=== PATIENT | female | born 2000 | race Hispanic/Latino ===

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

== ENCOUNTER 2024-08-16 22:08 | Emergency (ER) | payer OTHER, SELFPAY ==
--- NOTE | ~2024-08-16 | CT_ITS ---
CT of the Abdomen and Pelvis: Indication: Abdominal pain Technique: 2.5 mm axial scans were obtained through the abdomen and pelvis following intravenous adm inistration of 100 cc of Omnipaque 350. Dose reduction technique was used on this scan by utilizing a utomated exposure control and iterative reconstruction technique. The dose-length product (DLP) was 1 228.83 mGy-cm. Findings: Scans through the lung bases are unremarkable. The liver, spleen, pancreas, gallbladder, adrenals and kidneys are within normal limits. No evidence of aortic aneurysm. No lymphadenopathy. No bowel obstruction or bowel wall thickening. There is no evidence to suggest acute appendicitis. Images through the pelvis were performed. Urinary bladder unremarkable. No pelvic mass evident. No as cites. Impression: No significant abnormalities seen. Reviewed, dictated and finalized at location . Impression: No significant abnormalities seen.
--- OUTSIDE RECORDS SUMMARY | 2024-08-16 22:10 | XMS_ITS | Clinical Summary ---
Author Organization [facility] Address [address] [place] [address] Care Team Providers Care Coin Machine Service Repairer Name Role Phone Uriel Dinero MD Primary Care Provider [phone] Allergies No known active allergies Medications prenat.vits,home ,[id number] tablet Take 1 tablet by mouth daily Active acetaminophen (TYLENOL) 325 mg tablet Take 2 tablets (650 mg total) by mouth every 6 (six) hours as needed for pain 90 tablet 03/10/2023 Active polyethylene glycol (MIRALAX) 17 gram/dose bulk powder Take 17 g by mouth daily as needed (consitpatio n) 289 g 03/10/2023 Active ibuprofen (ADVIL,MOTRIN) 600 mg tabletIndicatio ns:Cramps Take 1 tablet (600 mg total) by mouth every 6 (six) hours as needed for pain 60 tablet 03/10/2023 Active Active Problems Problem Noted Date Diagnosed Date 03/07/2023 Overview (03/15/2023): # ID: Afebrile. No signs/symptoms of infection. # Heme: Hgb 10.6 > EBL 300 mL. Hemodynamically stable. # CV/Pulm: Pre-eclampsia without severe features - Blood pressures well controlled on no meds. Asymptomatic, denies ZAPATA/RUQ pain/vision changes. CBC/CMP notable for transaminitis most recently 261/623 > 113/418 on 03/09> 83/318 03/10, UPC wnl. Enrolled home in BP monitoring- received text.BP normotensive in the last 24 hours. # GI/: Tolerating PO. Voiding spontaneously. Corrected calcium 7.9, ordered for calcium carbonate qD while inpatient. Repeat corrected calcium 8.9 # Elevated 1h, no 3h: BG intrapartum wnl # Pain: Controlled with above regimen. # Anxiety: SW consult # MOC: Declines until visit. # MOF: Formula feeding. Urine drug screen not indicated. Patient informed of results: N/A. # Post DVT prophylaxis: The patient has the following MAJOR risk factors none and the following MINOR risk factors BMI 30-39 and preeclampsia. enoxaparin 40 mg daily ordered for VTE prophylaxis. # Disposition: Follow up task not sent. Desires discharge home today. Placenta, vaginal delivery - membranes with no histopathologic abnormality - Three vessel cord with no histopathologic abnormality - Acute subchorionitis - Subchorionic hematoma, 2.0 cm - Chorionic villi with appropriate villous maturation Gestational hypertension, third trimester 2023 Overview (03/02/2023): Ruled in on 03/02/23 at 36w6d d/t multiple MR Bps at home See note for BP log Elevated blood pressure reading 02/01/2023 Overview (03/02/2023): 02/01/23 @ 32w5d 144/84 automatic with manual recheck of 140/88 1+ protein in urine Asymptomatic UPC: 0.115 H/H: 11.7/35 K+: 3.7 Cr: 0.49 AST/ALT: 1802/23/23 @ 35w6d 142/86 automatic with manual recheck of 132/86 1+ protein in urine Asymptomatic UPC: 0.136 H/H: 12.1/36.3 K+: 3.9 Cr: 0.58 AST/ALT: Give home BP and log PLAN: After discussion with laborist Nisa, plan to record home Bps and return in a week. If pt then meets criteria for gHTN, plan to deliver approx 37 weeks. 03/02/23: BP in clinic 125/81 Home BP log with multiple MR Bps documented (see note for picture of log) 2+protein in urine Visual changed (floaters) PLAN: present to [facility] for r/o pre-E and delivery planning for 37w Elevated glucose tolerance test 01/05/2023 Overview (03/02/2023): 01/04/23: 143 3 hr GTT ordered- pt plans to present next week for test 02/01/23: reminded patient to come in the morning for fasting test, patient plans to present next week for test. 02/09/23: pt not fasting at appointment. Reiterated importance of 3hr GTT and effects of undiagnosed gDM on /fetus. Pt voices understanding and plans to present later his week to complete it. Glucose POCT today is 125. Reminded patient we can provide letter to excuse her from work for GTT if she needs it. 02/23/23: 3hr GTT not completed (pt not fasting). POCT glucose today is 92 03/02/23: POCT 76 Obese 10/13/2022 Overview (02/09/2023): BMI 30 and over We discussed the risks associated with obesity, including preeclampsia, gestational diabetes, delivery, growth abnormalities (IUGR and macrosomia) and stillbirth. We would recommend a specialized anatomic survey, serial growth assessment and testing. Aspirin 81mg should be started after 12 weeks to decrease the risk of preeclampsia. Plan: [x] Specialized anatomy around 20 weeks (Order [id number]) 11/10/22, r/p in 2 weeks= normal [] Serial Gena every 4weeks beginning at 28weeks gestation. 01/14/23: @ 30w1d 1609g (54%), AC 63% 02/09/23: @ 33w6d 2404g (57%)- VERTEX Next scheduled for 03/09/23: [x] Rx ASA 81 mg daily 12-36 weeks. Rx sent 10/13/22 @ [facility] [x] A1C: 5.2 [] Anesthesia consult if BMI > 50 [] Once weekly testing N/A BMI at I[facility] 33.5 BMI 35.0-39.9 beginning at 37w0d BMI >40.0 beginning at 34w0d History of anxiety & depression 10/13/2022 Overview (01/04/2023): No meds for last 2 years Mood stable EPDS 1 Patient to alert team if symptoms become unmanageable Resources offered Encounter for supervision of normal Overview (03/01/2023): 1st Trimester: [x] Dating Criteria: L=2 LMP 06/17/22 (KALLIE 03/24/23) 16w6d 2T BSUS @IOB: [place] 16w6d c/w LMP Reports having 8 week US at [facility] in [place], but does not have records [x] Labs: O+ (neg) H/H: 13.2/39.0 Rubella: reactive VZV: reactive HIV: NR RPR: NR Hep B: NR Hep C: NR [x] HgbA1c: 5.2 [x] NG/CT/Trich: neg [x] UCx: CIG [] Hgb electrophoresis: N/A [] Pap: <21 yo [x] Panorama: LR NIPT, female [x] Carrier Screen: neg 14/14 [x] ASA at 12 weeks (if indicated) rx sent at [facility] on 10/13/22 [] Feeding Preferences Survey: benefits of discussed with patient at RN [facility] 2nd Trimester: [x] Anatomy ultrasound: 11/10/22 @ 20w6d 356g(26%), AC 34%, vertex, anterior placenta, no previa. Incomplete- plan to r/p in 2 weeks 12/24/22: complete, normal [x] Placenta: anterior [x] H/H: 11.7/34.0 (rx iron sent 02/01/23) Plt: 298 Ferritin: 16 RPR: NR [x] 1hr GTT (24-28wks): 143, 3hr fasting GTT ordered [x] PNBHS referral (if indicated): N/A EPDS= 1 [x] Second/Third trimester education packet given - 01/04/23 [] Flu Shot (Sep-Dec): declines 01/04/23 [x] Tdap (27-36wks): 02/09/23 [] Rhogam (if Rh neg): O+ (neg) N/A [x] Childbirth classes discussed [x] education (colostrum, expected breast changes). Pt wants to formula feed 3rd Trimester: [x] H/H: 12.1/36.3 Plt: 248 HIV: NR RPR: NR T&S: O+ (neg) [x] GBS: NEGATIVE 02/23/23 [x] NG/CT: neg Trich: neg [x] Final discussion-Discussed Baby Friendly-skin to skin, rooming in, support, formula safety. [] Breast Pump order form provided: pt wishes to formula feed Counseling: [x] Discussed anticipated weight gain in [x] Method of delivery: anticipate vaginal [] Bottle of CHG 4% and hand out provided @ 36wks (if planned) [x] Timing of delivery: pt desires spontaneous labor [x] Method of Feeding: Discussed baby friendly, skin to skin, rooming in, support. Formula safety. Pt wishes to formula feed [] COVID-19 vaccine: [x] education: completed in all 3 trimesters [x] Method of Contraception: Discussed pills, patch, ring, injection, implant, IUD. Pt considering options [x] Commercial Plumber: Provided list in wrap up on 02/01/23 [x] Car seat discussed [] PP depression counseling Last visit: [] Last clinic visit SVE: [] IOL start agent: [] Epidural: [] Consents signed: Sprain of right knee 02/22/2021 Encounter for medical examination to establish c are 12/26/2020 Assessment & Plan (12/26/2020 2:03 PM UNDERGROUND FOREMAN): A yearly well visit (also to establish care) has been performed today. Tiffani Gomez is up to date on screening tests. She is in need of None- no screening indicated at this time- these have been ordered. She is not up to date on needed preventative vaccinations; She is in need of Meningococcal. These have been ordered/arranged unless otherwise indicated. Panic disorder without agoraphobia 12/23/2020 Resolved Problems Problem Noted Date Diagnosed Date Resolved Date Gestational hypertension, third trimester 02/23/2023 02/23/2023 Overview (02/23/2023): gHTN/Pre-Eclampsia without severe features Counseling: date Hypertensive disorders of include a spectrum of diseases that have increasing severity and associated complications. Gestational hypertension (GHTN) is diagnosed when new onset hypertension develops after 20 weeks of , defined as 2 blood pressures >140/90 >4 hours apart in a patient without a history of hypertension. Blood pressures return to normal . 50% of patients with GHTN will eventually develop preeclampsia and this is more common if GHTN is diagnosed before 32 weeks. Patients with GHTN also have a higher frequency of liver dysfunction and thrombocytopenia. Delivery is recommended by 37 weeks to reduce the risk of complications and development of preeclampsia. Preeclampsia without severe features is another hypertensive disorder of that has the same blood pressure criteria as GHTN with added new onset proteinuria (UPC >0.3) without evidence of other end organ damage on laboratory evaluation. The main complication associated with this condition is the development of severe features or end organ damage of the kidneys, liver, or blood or severe range blood pressures requiring treatment. Other complications include iatrogenic , higher mortality risk, and higher risk of developing eclampsia. Plan: [] Consider consult vs. transfer to [facility]/resident clinic [] Weekly clinic visits [] Weekly preeclampsia labs (CBC, CMP, UPC) [] Do not initiate antihypertensives to prevent masking the development of preeclampsia [] Blood pressure cuff given and calibrated in clinic. Blood pressure log to be reviewed weekly Educated patient to sit quietly with legs uncrossed. Instructed not to talk when checking blood pressure. Record blood pressure on log provided to patient today. Call clinic if BP > 140/90. [facility] Precautions reviewed. [] Twice weekly testing after diagnosis [] Serial growth ultrasounds every 4 weeks [] Delivery by 37w0d, earlier if diagnosis of severe features develop Proteinuria 02/09/2023 03/02/2023 Overview (03/01/2023): Noted 1+ proteinuria Denies neuro symptoms & RUQ pain No edema BPs normotensive UPC/CMP: WNL Consider gestational proteinuria and CTM urine dips in clinic CTM for s/s Pre-E Encounters Date Type Department Care Team Description 07/09/2024 Telephone [facility] Primary Care at [address] [address] Uriel Dinero MD from Last 3 Months Immunizations Immunization Administration Dates Next Due DTaP 09/09/2006, 5,06/27/2003,04/04 DTaP / Hep B / IPV 2002 DTaP, Unspecified 2002 HPV9 10/27/2016,11/13/2015 Hep A, Ped Unspecified 10/01/2005 Hep A, Pediatric 01/01/2005 Hep B, Adolescent or Pediatric 06/27/2003,2003,2002 HiB 04/04/2003,2002 Hib (PRP-OMP) 02/19/2004,06/27/2003 IPV 09/09/2006, 4,04/04/2003,12/14 Influenza, Quadrivalent, Spl it, Preservative Free, Intramuscular 11/23/2013 Influenza, Split 01/01/2005,02/19/2004 Influenza, Unspecified 01/08/2021(Deferr ed: Patient Refused),01/08/2021(Deferred: Patient Refused),03/19/2020(Deferred: Patient Refused),02/08/2020(Deferred: Patient Refused) MMR 03/10/2023(Deferred: No longer needed),10/07/2006,12/23/2003 Meningococcal MCV4P (Menactra) 11/23/2013 Pneumococcal Conjugate, Unspecified 02/07,12/23/2003,04/04/2003,12/14 Tdap 02/09/2023,11/23/2013 Varicella 03/10/2023(Deferred: No longer needed),09/09/2006,12/23/2003 Medical History Medical History Date Comments Depression Anxiety Bacterial vaginosis Urinary tract infection Family History Medical History Relation Name Comments No Known Problems Brother No Known Problems Father Heart attack Maternal Grandfather fr om heart attack at 58 years of age No Known Problems Maternal Grandmother No Known Problems Mother No Known Problems Paternal Grandfather No Known Problems Sister Relation Name Status Comments Brother Alive Father Alive Maternal Grandfather Maternal Grandmother Alive Mother Alive Paternal Grandfather Alive Paternal Grandmother Alive Sister Alive Social History Tobacco Use Types Packs/Day Years Used Date Smoking Tobacco: Never Smokeless Tobacco: Never Tobacco Cessation:Counseling Given: Not Answered [facility] Utilities Answer Date Recorded In the past 12 months has e electric, gas, oil, or water company threatened to shut off services in your home? No 03/09/2023 Humiliation, Afraid, Rape, and Kick questionnair e Answer Date Recorded Within the last year, have y ou been afraid of your partner or ex-partner? No 10/05/2022 Within the last year, have y ou been humiliated or emotionally abused in other ways by your partner or ex-partner? No Within the last year, have y ou been kicked, hit, slapped, or otherwise physically hurt by your partner or ex-partner? No 10/05/2022 Within the last year, have y ou been raped or forced to have any kind of sexual activity by your partner or ex-partner? No 10/05/2022 Social Connection and Isolation Panel [NHANES] A nswer Date Recorded In a typical week, how many times do you talk on the phone with family, friends, or neighbors? Three times a week 03/09/2023 How often do you get togethe r with friends or relatives? Twice a week 03/09/2023 How often do you attend chur ch or buddhism services? Never 03/09/2023 Do you belong to any clubs o r organizations such as scientology groups, unions, fraternal or athletic groups, or school groups? No 03/09/2023 How often do you attend meet ings of the clubs or organizations you belong to? Never 03/09/2023 Are you , , di vorced, , never , or living with a partner? Never 03/09/2023 AUDIT-C Answer Date Recorded Q1: How often do you have a drink containing alcohol? Never 10/05/2022 Q2: How many drinks containi ng alcohol do you have on a typical day when you are drinking? Patient does not drink Q3: How often do you have si x or more drinks on one occasion? Never 10/05/2022 Overall Financial Resource Strain (CARDIA) Answe r Date Recorded How hard is it for you to pa y for the very basics like food, housing, medical care, and heating? Not hard at all 03/09/2023 PHQ-2 Answer Date Recorded PHQ-2 Total Score (If total score is 3 or more points, staff should administer the PHQ-9) 1 [facility]/20[facility] - Occupational Stress Questionnaire Answer Date Recorded Do you feel stress - tense, restless, nervous, or anxious, or unable to sleep at night because your mind is troubled all the time - these days? Not at all 10/05/2022 Exercise Vital Sign Answer Date Recorde d On average, how many days pe r week do you engage in moderate to strenuous exercise (like a brisk walk)? 0 days 10/05/2022 On average, how many minutes do you engage in exercise at this level? 0 min 10/05/2022 Hunger Vital Sign Answer Date Recorded Within the past 12 months, y ou worried that your food would run out before you got the money to buy more. Never true 03/09/19 24 Within the past 12 months, t he food you bought just didn't last and you didn't have money to get more. Never true 03/09/2023 PRAPARE - Transportation Answer Date Re corded In the past 12 months, has l ack of transportation kept you from medical appointments or from getting medications? No 02/09 In the past 12 months, has l ack of transportation kept you from meetings, work, or from getting things needed for daily living? No 03/09/2023 Housing Stability Vital Sign Answer Bryson e Recorded In the last 12 months, was t here a time when you were not able to pay the mortgage or rent on time? No 03/09/2023 In the last 12 months, how many places have you lived? 1 03/09/2023 In the last 12 months, was t here a time when you did not have a steady place to sleep or slept in a prison (including now)? No 03/09/2023 [place] Depression Scale Answer Date Recorded [place] Depression Scale Total 1 01/04/2023 The thought of harming myself has occurred to me . Never 01/04/2023 Personal Safety Answer Date Recorded Have you ever been in or are you currently in a harmful physical or emotional relationship or is someone making you feel afraid or unsafe? Denies 03/07/2023 Education Answer Date Recorded What is the highest level of school you have completed or the highest degree you have received? 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 on file Not on file Not on file Obstetrics History Para Term AB IAB SAB Ectopic Multiple Livin g Live Births 1 1 1 0 1 1 Date Outcome GA Total Labor Labor/2nd/3rd Weight Sex Type Anes PTL Roxy A1 A5 Name Clin 2023 Term 37w 5d 21h 51m 21h 17m/0h 29m/0h 05m 3.23 kg (7 lb 1.9 oz) F Vagina l Epidur al N Livin g 7 8 Lylasheryl Aguilar, Lilia Gruber MD Complications:Pre eclampsia Delivery [facility] ([facility]) Last Filed Vital Signs Vital Sign Reading Time Taken Comments Blood Pressure 126/87 03/10/2023 9:09 AM UNDERGROUND FOREMAN Pulse 64 03/10/2023 9:09 AM UNDERGROUND FOREMAN Temperature 36.5 C (97.7 F) 03/10/2023 9:09 AM UNDERGROUND FOREMAN Respiratory Rate 18 03/10/2023 9:09 AM UNDERGROUND FOREMAN Oxygen Saturation 100% 03/10/2023 9:09 AM UNDERGROUND FOREMAN Inhaled Oxygen Concentration - - Weight 97.2 kg (214 lb 3.2 oz) 03/07/2023 12:15 PM UNDERGROUND FOREMAN Height 162.6 cm (5' 4) 03/07/2023 12:15 PM UNDERGROUND FOREMAN Body Mass Index 36.77 03/07/2023 12:15 PM UNDERGROUND FOREMAN Plan of Treatment Health Maintenance Due Date Last Done Comments Cervical Cancer Screening 2002 Meningococcal B Vaccine (1 of 2 - Standard) 2018 Regular Well Visit/Exam 18-64 12/23/2021 12/23/2020 Depression Screening 01/05/2024 01/04/2023, 01/08/2021, 01/08/2021, Additional history exists Chlamydia and Gonorrhea (GC/CT) Screening 02/24/2024 02/23/2023, 10/05/2022 Influenza Vaccine (Season Ended) 2024 11/23/2013, 01/01/2005, 02/19/2004 DTaP/Tdap/Td Vaccine (7 - Td or Tdap) 02/09/2033 02/09/2023, 11/23/2013, 09/09/2006, Additional history exists Hepatitis B Screening Completed 06/27/2003 , 04/04/2003, 2002, Additional history exists Pneumococcal vaccine <65 Completed 005, 12/23/2003, 04/04/2003, Additional history exists Varicella Vaccines Completed 09/09/2006, 12/23/2003 Meningococcal Vaccine Aged Out 11/23/2013 No gurwinder tracey eligible based on patient's age to complete this topic HPV Vaccines Completed 10/27/2016, 11/13/2015 Hepatitis C Screening Completed 10/05/2022 Procedures Procedure Name Priority Date/Time Associated Diagnosis Comments N. GONORRHOEAE/C. TRACHOMATIS AMPLIFICATION Routine 02/23/2023 4:31 PM UNDERGROUND FOREMAN Encounter for supervision of normal , antepartum, unspecified HEPATITIS C ANTIBODY Routine 10/05/2022 11:58 AM CDT Encounter for supervision of normal first in second trimester from Last 3 Months or Most Recently Relevant to Health Maintenance Results * N. gonorrhoeae/C. trachomatis Amplification Vaginal (02/23/2023 4:31 PM UNDERGROUND FOREMAN) C. trachomatis Not Detected [facility] N. gonorrhoeae Not Detected [facility] Comment: Interpretive Data This assay detects Chlamydia trachomatis and Neisseria gonorrhoeae by nucleic acid amplification testing (NAAT). This assay has been cleared by the [place] Food and Drug administration. The performance characteristics of this test have been verified by the [facility] Molecular Infectious Disease laboratory. The performance characteristics of this test have not been evaluated in individuals less than 14 years of age. Current Interpretive Data was last revised on 2022. Vaginal (None) 02/23/2023 4: 31 PM UNDERGROUND FOREMAN 02/23/2023 5:49 PM UNDERGROUND FOREMAN Rosie Manzo NP LAB MICROBIOLOGY - GENERAL ORDERABLES Final Result Performing Organization Address City/[facility] Co de Phone Number [facility] [place] [address] * Hepatitis C antibody (10/05/2022 11:58 AM CDT) Hep C Ab Nonreactive Nonreactive [facility] Comment:Antibodies to HCV no t detected. Does NOT exclude the possibility of recent exposure to HCV. Current interpretive data was last revised on 21 Blood 10/05/2022 11:5 8 AM CDT 10/05/2022 12:29 PM CDT Rosie Manzo NP LAB MICROBIOLOGY - GENERAL ORDERABLES Final Result Performing Organization Address [facility] de [facility] Number [facility] [place] [address] from Last 3 Months or Most Recently Relevant to Health Maintenance Insurance [facility] Advance Directives For more information, please contact: [phone] * Full Code (Latest Code Status on File) Date Activated Date Inactivated Comments 03/08/2023 10:14 AM 03/10/2023 8:01 PM * Full Code Date Activated Date Inactivated Comments 03/07/2023 9:04 AM 03/08/2023 10:14 AM Full CPR in case of cardiopulmonary arrest Care Teams Coin Machine Service Repairer Relationship Specialty Start Date End Date Uriel Dinero MD PCP - General Family Medicine 12/05/20
--- OUTSIDE RECORDS SUMMARY | 2024-08-16 22:10 | XMS_ITS | Clinical Summary ---
Author Organization [facility] Address [address] [place] [address] Care Team Providers Care Instructor Ground Services Name Role Phone Zhang Oneal MD Primary Care Provider [phone] Source Comments [facility],non-owned Affiliates and Associated Physician Practices is amultiple site organization consisting of ambulatory clinics and hospital sitesin [place], [place], [place] and [place]. This disclosure is being madepursuant to the Care Everywhere program and may not contain all information available regarding this patient. 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 Gender Identity Not on file Sexual Orientation Not on file Plan of Treatment Health Maintenance Due Date Last Done Comments HIV SCREENING 2017 HPV VACCINE (1 - 3-dose series) 2017 CHLAMYDIA/GONORRHEA SCREENING 2018 MENINGOCOCCAL (Group B) VACC INE SHARED DECISION-MAKING (1 of 2 - Standard) 2018 HEPATITIS C SCREENING 09/27/2020 DTAP/TDAP/TD VACCINES (1 - Tdap) 2021 HEPATITIS B VACCINE (1 of 3 - 19+ 3-dose series) 2021 COVID-19 VACCINE (1 - 2023-2 5 season) 2023 DEPRESSION SCREENING 02/08/2024 INFLUENZA VACCINE (#1) 2024 ZOSTER VACCINE (1 of 2) 2052 HIB VACCINE Aged Out No longer eligi ble based on patient's age to complete this topic MENINGOCOCCAL GROUPS A/C/Y/W VACCINE Aged Out No longer eligible b ased on patient's age to complete this topic PNEUMOCOCCAL VACCINE Aged Out No long er eligible based on patient's age to complete this topic Insurance [facility] Care Teams Instructor Ground Services Relationship Specialty Start Date End Date Zhang Oneal MD [address] [place] [address] PCP - General Pediatrics 08/19/20
--- OUTSIDE RECORDS SUMMARY | 2024-08-16 22:10 | XMS_ITS | Data Portability ---
Author Organization [facility] [place] Address [address] [place] [address] [address] Assessment No assessment recorded. Plan of Treatment Reminders Order Date Submit Date Provider Last Modified By Organization Details Last Modified Time Details Appointments None recorded . Lab pregnanc y test, urine 2022 023 alexander [place], [address], [address], [place], [address], 17:29:09 urinalys is, dipstick 2022 023 alexander [place], [facility] [address], [address], [place], [address], 17:29:09 Referral None recorded . Procedures None recorded . Surgeries None recorded . Imaging US, pelvis, complete 2022 023 alexander Not available 13:36:47 Medication Orders None recorded . Patient TargetsNo targets recorded. Patient InstructionsNo instructions recorded. Reason for Referral None Reported. Results Created Date Observation Date Name Description Value Unit Range Abnormal Flag Note LastModifiedBy Organization Detail LastModifiedTime 07/14/1907/13/2022 urina lysis , dipst ick Leukocytes neg Not Available Karen govea [address], [place], [address], 07/13/2022 17:27:54 07/14/19 23 07/13/2022 urina lysis , dipst ick Nitrite neg Not Available [place] [address], [place], [address], 07/13/2022 17:27:54 07/14/19 23 07/13/2022 urina lysis , dipst ick Urobilinogen neg Not Available [facility] ty [address], [place], [address], 07/13/2022 17:27:54 07/14/19 23 07/13/2022 urina lysis , dipst ick Protein neg Not Available [place] [address], [place], [address], 07/13/2022 17:27:54 07/14/19 23 07/13/2022 urina lysis , dipst ick pH 5 Not Available [place] [address], [place], [address], 07/13/2022 17:27:54 07/14/19 23 07/13/2022 urina lysis , dipst ick Specific Dudley 1.005 Not Available [facility] trey [address], [place], [address], 07/13/2022 17:27:54 07/14/19 23 07/13/2022 urina lysis , dipst ick Ketone neg Not Available [place] [address], [place], [address], 07/13/2022 17:27:54 07/14/19 23 07/13/2022 urina lysis , dipst ick Bilirubin neg Not Available Alicia angulo [address], [place], [address], 07/13/2022 17:27:54 07/14/19 23 07/13/2022 urina lysis , dipst ick Glucose neg Not Available [place] [address], [place], [address], 07/13/2022 17:27:54 07/14/19 23 07/13/2022 urina lysis , dipst ick Appearance clear Not Available Karen govea [address], [place], [address], 07/13/2022 17:27:54 07/14/19 23 07/13/2022 urina lysis , dipst ick Color yellow Not Available [place] [address], [place], [address], 07/13/2022 17:27:54 07/14/19 23 07/13/2022 pregn jorge test, urine HCG negati ve Not Available [place] [address], [place], [address], 07/13/2022 17:26:29 Result Notes None recorded. Medical Equipment None Reported. Allergies No known drug allergies Medications Name Sig Start Date Stop Date Status Note LastModified by Organization Details LastModified Time amoxicillin 500 mg capsule TAKE 1 CAPSULE BY MOUTH EVERY 8 HOURS 07/13 completed Not Available Not Available Not Available acetaminophe n 300 mg-codeine 30 mg tablet TAKE 1 TO 2 TABLETS BY MOUTH EVERY 4 TO 6 HOURS NEEDED FOR PAIN 07/13 completed Not Available Not Available Not Available cephalexin 500 mg capsule 07/13 completed Not Available Not Available Not Available hydroxyzine HCl 25 mg tablet 07/13 completed Not Available Not Available Not Available escitalopram 5 mg tablet 07/13 completed Not Available Not Available Not Available Vitals Date Recorded Body height Body mass index (BMI) [Percentile] Per age and sex Body mass index (BMI) Body weight Systolic And Diastolic Provider Name and Address Organization Details Last Updated DateTime 3 165.1 cm 96 % 33.5 kg/m2 89368.5 g 107/74 mm[Hg] [place] Alejandra [facility] 3 17:08:11 Social History Question Answer Notes LastModified by Organizat ion Details LastModified Time Tobacco Smoking Status Never Smoker [place] Alejandra [facility] 07/13/2022 17:09:21 Are You Blind Or Do You Have Difficulty Seeing? No Information not available 07/13/2022 Are You Deaf Or Do You Have Serious Difficulty Hearing? No Information not available 07/13/2022 Do You Have Difficulty Walking Or Climbing Stairs? No Information not available 07/13/2022 Sex: Unknown Functional Status Question Answer Note LastModified by Organizat ion Details LastModified Time What is your level of alcohol consumption? None Information not available 07/13/2022 Are you able to walk? YESWOREST Information not available 07/13/2022 Are you able to care for yourself? Yes Information not available 07/13/2022 Do you have difficulty dressing or bathing? No Information not available 07/13/2022 Mental Status None recorded. Family History Relationship Description Onset Age of this Age Resolved Age Notes LastModified by Organization Details LastModified Time Father No current problems or disability [email or web address] Not available 07/2022 17:09:10 Mother No current problems or disability [email or web address] Not available 07/2022 17:09:10 Medical History Condition Response Allergies (Food, seasonal, environmental ) N Other N Breast Cancer N Drug/Latex Allergies/Reactions N Blood Transfusion N Dermatologic Disorders N Lung Disease N Defects or Inherited Disease N Breast Problem N Gestational Diabetes N Hematologic disorders N Anesthesia Complications N History of STI N Deep Vein Thrombosis N Polycystic ovary syndrome N Anxiety Disorder Y Autoimmune disease N Arthritis N Infertility N Polyps N Acid Reflux (GERD) N History of abnormal pap N Cancer N Stroke N Varicosities N Neurologic/Epilepsy N Endometriosis N High Cholesterol N Headaches N Fibromyalgia N Kidney Disease N Heart Problems N Kidney or Bladder Problems N Thyroid Problems N GI Problems N Eating Disorder N Anemia N Art (IVF or FET) N Psychiatric Illness N Ovarian Cancer N Diabetes N Pulmonary (TB, Asthma) N Hepatitis/Liver Disease N No Past Medical History N Eczema N Urinary Tract Infection N Abuse/Domestic Violence N Asthma N Trauma/Violence N Depression/ depression N Heart Disease N Pre-Eclampsia N Hypertension N Osteoporosis N Thrombophilias N Gynecological History Statement/Question Response Flow Heavy Date of LMP 06/17/2022 Was last menstrual period normal Y STIs/STDs N HPV Vaccine N Duration of Flow (days) 7 Current Control Method None Are cycles usually normal Y Sexually Active? Y Menses Monthly Y Age of first menstrual cycle 12 Date of Last Pap Smear Sexual Problems? Y LMP Approximate Obstetrics History GPAL:G 0 P 0 0 0 0 Past Encounters Encounter ID Performer Location Encounter Start Date Encounter Closed Date Diagnosis/Indication Diagnosis SNOMED-CT Code Diagnosis ICD10 Code Diagnosis Note [id number] CARMELLA Reyes [place] [address] [address] 07/13/2022 16:36:15 07/13/2022 17:43:49 Pain in pelvis 79536041 R10.2 This patient is a 21 -year-old female with pelvic pain. We have agreed to complete the evaluation with pelvic ultrasound . The patient will return after the pelvic ultrasound to discuss those findings and to develop a treatment plan. A comprehens lauryn history and physical exam was performed today. We spent over 25 minutes face-to-fa ce. The patient was given precaution s. She will contact clinic if pelvic pain increases in frequency or intensity. Also notify clinic of any new symptoms associated with pelvic pain. She does not appear to have an acute pelvic infection today, but was asked to contact us Immediatel y with nausea, vomiting, fever, chills. UPT (-)UA - normalSTI endocervic al testing sentwill update pelvic u/sRTC for pelvic u/s and f/u Health Concerns Section Related Observation LastModified by Organization Detai ls LastModified Time None Recorded Concern Status LastModified by Organization Details LastModified Time None Recorded Advance Directives Directive None Recorded Payers Insurance Date Sequence Insurance Name Policy Number Policy Malik Covered Member ID Malik Member ID Guarantor Name 07/18/2022 1 [facility] - DOS ON OR AFTER 20 (MEDICAID REPLACEMENT - HMO) Tiffani Gomez [id number] Tiffani Gomez Notes Date Note Type Note Provider Name and Address Organization Details Recorded Time 07/13/2022 text/html 21yo [id number] for evaluation of pelvic painstarted 3 days ago after ICnoticed pain with IC and then cramping on and off ever sincebilateral lower cramping, worse with activityBC not practiced, SA with current partner x 4 monthsdenies any vaginal bleeding, odors, d/c, itching, or irritationneg urinary symptomsneg bowel movement changesneg n/v/fneg flu-like symptoms Zaynab Benton, CARMELLA [address], [place], [address], [place] [facility] 07/13/2022 17:34:25 OBGyn Episode No OBEpisode recorded.
--- OUTSIDE RECORDS SUMMARY | 2024-08-16 22:10 | XMS_ITS | Referral Summary ---
Author Organization [facility] Address [address] [place] [address] Care Team Providers Care Life Consultant Name Role Phone Uriel Dinero MD Primary Care Provider [phone] Encounters Date Type Department Care Team Description 07/09/2024 Telephone [facility] Primary Care at [address] [address] Uriel Dinero MD from Last 3 Months Allergies No known active allergies Medications prenat.vits,home ,ocl-qatr-qtlvg tablet Take 1 tablet by mouth daily [...] H/H: 11.7/35 K+: 3.7 Cr: 0.49 AST/ALT: 18/19 02/23/23 @ 35w6d 142/86 automatic with manual recheck [...] urine Visual changed (floaters) PLAN: present to [facility] for r/o pre-E and delivery planning for [...] [x] Specialized anatomy around 20 weeks (Order [id number]) 11/10/22, r/p in 2 weeks= normal [] [...] LMP Reports having 8 week US at [facility] in [place], but does not have records [x] Labs: [...] packet given - 01/04/23 [] Flu Shot (Oct-Jan): declines 01/04/23 [x] Tdap (27-36wks): 02/09/23 [] [...] injection, implant, IUD. Pt considering options [x] Tufter: Provided list in wrap up on 02/01/23 [x] Car seat discussed [] PP depression counseling Last visit: [] Last clinic visit SVE: [] IOL start agent: [] Epidural: [] Consents signed: Sprain of right knee 02/22/2021 Encounter for medical examination to establish c are 12/26/2020 Assessment & Plan (12/26/2020 2:03 PM PACKAGING OPERATOR): A yearly well visit (also to establish [...] today. Call clinic if BP > 140/90. [place] Precautions reviewed. [] Twice weekly testing after diagnosis [] Serial growth ultrasounds every 4 weeks [] Delivery by 37w0d, earlier if diagnosis of severe features develop Proteinuria 02/09/2023 03/02/2023 Overview (03/01/2023): Noted 1+ proteinuria Denies neuro symptoms & RUQ pain No edema BPs normotensive UPC/CMP: WNL Consider gestational proteinuria and CTM urine dips in clinic CTM for s/s Pre-E Immunizations Immunization Administration Dates Next Due DTaP [...] Tdap 02/09/2023,11/23/2013 Varicella 03/10/2023(Deferred: No longer needed),09/09/2006,12/23/2003 Social History Tobacco Use Types Packs/Day Years Used Date Smoking Tobacco: Never Smokeless Tobacco: Never Tobacco Cessation:Counseling Given: Not Answered [facility] Utilities Answer Date Recorded In the past 12 months has e [employer], gas, oil, or water [employer] threatened to shut off services in your [...] often do you attend chur ch or baptism services? Never 03/09/2023 Do you belong to any clubs o r organizations such as tenriism groups, unions, fraternal or athletic groups, or [...] staff should administer the PHQ-9) 1 01/08/2021 [facility] - Occupational Stress Questionnaire Answer Date Recorded [...] place to sleep or slept in a mcfp (including now)? 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 file Not on file Not on file Last Filed Vital Signs Vital Sign Reading Time Taken Comments Blood Pressure 126/87 03/10/2023 9:09 AM PACKAGING OPERATOR Pulse 64 03/10/2023 9:09 AM PACKAGING OPERATOR Temperature 36.5 C (97.7 F) 03/10/2023 9:09 AM PACKAGING OPERATOR Respiratory Rate 18 03/10/2023 9:09 AM PACKAGING OPERATOR Oxygen Saturation 100% 03/10/2023 9:09 AM PACKAGING OPERATOR Inhaled Oxygen Concentration - - Weight 97.2 kg (214 lb 3.2 oz) 03/07/2023 12:15 PM PACKAGING OPERATOR Height 162.6 cm (5' 4) 03/07/2023 12:15 PM PACKAGING OPERATOR Body Mass Index 36.77 03/07/2023 12:15 PM PACKAGING OPERATOR Plan of Treatment Not on file Procedures Procedure Name Priority Date/Time Associated Diagnosis Comments N. GONORRHOEAE/C. TRACHOMATIS AMPLIFICATION Routine 02/23/2023 4:31 PM PACKAGING OPERATOR Encounter for supervision of normal , antepartum, unspecified HEPATITIS C ANTIBODY Routine 10/05/2022 11:58 AM CDT Encounter for supervision of normal first in second trimester from Last 3 Months or Most Recently Relevant to Health Maintenance Results * N. gonorrhoeae/C. trachomatis Amplification Vaginal (02/23/2023 4:31 PM PACKAGING OPERATOR) C. trachomatis Not Detected [facility] N. gonorrhoeae Not Detected [facility] Comment: Interpretive Data This assay detects Chlamydia trachomatis and Neisseria gonorrhoeae by nucleic acid amplification testing (NAAT). This assay has been cleared by the [place] Food and Drug administration. The performance characteristics of this test have been verified by the [facility] Molecular Infectious Disease laboratory. The performance characteristics of this test have not been evaluated in individuals less than 14 years of age. Current Interpretive Data was last revised on 2022. Vaginal (None) 02/23/2023 4: 31 PM PACKAGING OPERATOR 02/23/2023 5:49 PM PACKAGING OPERATOR Rosie Manzo NP LAB MICROBIOLOGY - GENERAL ORDERABLES Final Result [facility] [place] [address] * Hepatitis C antibody (10/05/2022 11:58 AM CDT) Hep C Ab Nonreactive Nonreactive [facility] Comment:Antibodies to HCV no t detected. Does NOT exclude the possibility of recent exposure to HCV. Current interpretive data was last revised on 21 Blood 10/05/2022 11:5 8 AM CDT 10/05/2022 12:29 PM CDT Rosie Manzo NP LAB MICROBIOLOGY - GENERAL ORDERABLES Final Result Performing Organization Address [facility] Co de Phone Number [facility] Department [place] [address] from Last 3 Months or Most Recently Relevant to Health Maintenance Insurance [facility] Advance Directives For more information, please contact: [phone] * Full Code (Latest Code Status on File) Date Activated Date Inactivated Comments 03/08/2023 10:14 AM 03/10/2023 8:01 PM * Full Code Date Activated Date Inactivated Comments 03/07/2023 9:04 AM 03/08/2023 10:14 AM Full CPR in case of cardiopulmonary arrest Care Teams Life Consultant Relationship Specialty Start Date End Date Uriel Dinero MD PCP - General Family Medicine 12/05/20
[2024-08-16 22:56] VITALS: BP 131/90; PULSE 87; RESP 18; TEMP 36.2; O2SAT 98
[2024-08-17 00:48] LABS: BEDSIDEPREGUCG Negative (Negative)
[2024-08-17 00:53] LABS: Hematocrit 42.5 % (37.0-47.0); Hemoglobin 14.0 g/dL (12.0-15.0); Immature Granulocyte Percent A 0.4 % (0-0.5); Lymphocytes Absolute Auto 3.70 K/mm3 (0.9-3.2); Mean Corpuscular HGB Conc 32.9 g/dl (32-36); Mean Corpuscular Hemoglobin 28.3 pg (26-34); Mean Corpuscular Volume 85.9 fl (80-100); Nucleated Red Blood Cells Absolute Auto 0.000 K/mm3 (0.0-0.012); Nucleated Red Blood Cells Perc 0.0 % (0.0-0.2); Platelet Count Result 292 k/mm3 (150-375); Red Blood Count 4.95 M/mm3 (4.2-5.4); White Blood Count 11.4 K/mm3 (4.5-10.0)
[2024-08-17 01:04] LABS: Add Urine Microscopic? YES; Appearance Urine Cloudy (Clear); Glucose Urine UA Negative (Negative); Leukocyte Esterase Ur 1+ LEU/UL (Negative); Need Manual Microscopic Reviewed; Nitrate Urine Negative (Negative); Non Pathogenic Casts 0-2; Specific Grav Ur 1.024 (1.001-1.035)
[2024-08-17 01:13] LABS: Alanine Aminotransferase 45 U/L (6-35); Albumin Level 4.6 g/dL (3.5-5.1); Alkaline Phosphatase 79 U/L (38-126); Anion Gap 9 mmol/L (4-12); Aspartate Amino Transferase 28 U/L (14-36); Bilirubin,Total 0.3 mg/dL (0.2-1.3); Blood Urea Nitrogen 14 mg/dL (7-17); Calcium 9.4 mg/dL (8.4-10.2); Carbon Dioxide 26 mmol/L (22-30); Chloride 104 mmol/L (98-107); Estimated CRCL calculation 101 ml/min; Estimated Glomerular Filt Rate > 60; Glucose 103 mg/dL (65-110); Lipase 61 U/L (23-300); Potassium 4.2 mmol/L (3.4-5.0); Sodium 139 mmol/L (137-145); Total Protein 7.9 g/dL (6.3-8.2)
--- OUTSIDE RECORDS SUMMARY | 2024-08-17 01:20 | XMS_ITS | Clinical Summary ---
Author Organization [facility] Address [address] [place] [address] Care Team Providers Care Final Assembler Name Role Phone Uriel Dinero MD Primary Care Provider [phone] Allergies No known active allergies Medications prenat.vits,home ,mmo-jaju-nweqq tablet Take 1 tablet by mouth daily [...] urine Visual changed (floaters) PLAN: present to [facility] for r/o pre-E and delivery planning for [...] [x] Specialized anatomy around 20 weeks (Order [id number]) 11/10/22, r/p in 2 weeks= normal [] [...] LMP Reports having 8 week US at [facility] in [place], but does not have records [x] Labs: [...] injection, implant, IUD. Pt considering options [x] Program Associate: Provided list in wrap up on 02/01/23 [x] Car seat discussed [] PP depression counseling Last visit: [] Last clinic visit SVE: [] IOL start agent: [] Epidural: [] Consents signed: Sprain of right knee 02/22/2021 Encounter for medical examination to establish c are 12/26/2020 Assessment & Plan (12/26/2020 2:03 PM PUBLIC HOUSING INTERVIEWER): A yearly well visit (also to establish [...] today. Call clinic if BP > 140/90. [facility] Precautions reviewed. [] Twice weekly testing after [...] Type Department Care Team Description 07/09/2024 Telephone [facility] Primary Care at [address] [address] Uriel Dinero MD from Last [...] Tobacco: Never Tobacco Cessation:Counseling Given: Not Answered [facility] Utilities Answer Date Recorded In the [...] often do you attend chur ch or jehovah's witness services? Never 03/09/2023 Do you belong to any clubs o r organizations such as episcopalian groups, unions, fraternal or athletic groups, or [...] staff should administer the PHQ-9) 1 01/08/2021 [facility] - Occupational Stress Questionnaire Answer Date [...] place to sleep or slept in a jail (including now)? 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 Not on file Not [...] Aguilar, Lilia Gruber MD Complications:Pre eclampsia Delivery [facility]) Last Filed Vital Signs Vital Sign Reading Time Taken Comments Blood Pressure 126/87 03/10/2023 9:09 AM PUBLIC HOUSING INTERVIEWER Pulse 64 03/10/2023 9:09 AM PUBLIC HOUSING INTERVIEWER Temperature 36.5 C (97.7 F) 03/10/2023 9:09 AM PUBLIC HOUSING INTERVIEWER Respiratory Rate 18 03/10/2023 9:09 AM PUBLIC HOUSING INTERVIEWER Oxygen Saturation 100% 03/10/2023 9:09 AM PUBLIC HOUSING INTERVIEWER Inhaled Oxygen Concentration - - Weight 97.2 kg (214 lb 3.2 oz) 03/07/2023 12:15 PM PUBLIC HOUSING INTERVIEWER Height 162.6 cm (5' 4) 03/07/2023 12:15 PM PUBLIC HOUSING INTERVIEWER Body Mass Index 36.77 03/07/2023 12:15 PM PUBLIC HOUSING INTERVIEWER Plan of Treatment Health Maintenance Due Date [...] GONORRHOEAE/C. TRACHOMATIS AMPLIFICATION Routine 02/23/2023 4:31 PM PUBLIC HOUSING INTERVIEWER Encounter for supervision of normal , antepartum, unspecified HEPATITIS C ANTIBODY Routine 10/05/2022 11:58 AM CDT Encounter for supervision of normal first in second trimester from Last 3 Months or Most Recently Relevant to Health Maintenance Results * N. gonorrhoeae/C. trachomatis Amplification Vaginal (02/23/2023 4:31 PM PUBLIC HOUSING INTERVIEWER) C. trachomatis Not Detected [facility] N. gonorrhoeae Not Detected [facility] Comment: Interpretive Data This assay detects Chlamydia trachomatis and Neisseria gonorrhoeae by nucleic acid amplification testing (NAAT). This assay has been cleared by the [place] Food and Drug administration. The performance characteristics of this test have been verified by the [facility] Molecular Infectious Disease laboratory. The performance characteristics of this test have not been evaluated in individuals less than 14 years of age. Current Interpretive Data was last revised on 2022. Vaginal (None) 02/23/2023 4: 31 PM PUBLIC HOUSING INTERVIEWER 02/23/2023 5:49 PM PUBLIC HOUSING INTERVIEWER Rosie Manzo NP LAB MICROBIOLOGY - GENERAL ORDERABLES Final Result Performing Organization Address City/[facility] Co de Phone Number [facility] Department [place] [address] * Hepatitis C antibody (10/05/2022 11:58 AM CDT) Hep C Ab Nonreactive Nonreactive [facility] Comment:Antibodies to HCV no t detected. Does NOT exclude the possibility of recent exposure to HCV. Current interpretive data was last revised on 21 Blood 10/05/2022 11:5 8 AM CDT 10/05/2022 12:29 PM CDT Rosie Manzo NP LAB MICROBIOLOGY - GENERAL ORDERABLES Final Result Performing Organization Address [facility] de Phone Number [facility] Department [place] [address] from Last 3 Months or Most Recently Relevant to Health Maintenance Insurance [facility] Advance Directives For more information, please contact: [phone] * Full Code (Latest Code Status on File) Date Activated Date Inactivated Comments 03/08/2023 10:14 AM 03/10/2023 8:01 PM * Full Code Date Activated Date Inactivated Comments 03/07/2023 9:04 AM 03/08/2023 10:14 AM Full CPR in case of cardiopulmonary arrest Care Teams Final Assembler Relationship Specialty Start Date End Date Uriel Dinero MD PCP - General Family Medicine 12/05/20
--- OUTSIDE RECORDS SUMMARY | 2024-08-17 01:20 | XMS_ITS | Referral Summary ---
Author Organization [facility] Address [address] [place] [address] Care Team Providers Care Electronic Equipment Repairer Name Role Phone Uriel Dinero MD Primary Care Provider [phone] Encounters Date Type Department Care Team Description 07/09/2024 Telephone [facility] Primary Care at [address] [address] Uriel Dinero MD from Last 3 Months Allergies No known active allergies Medications prenat.vits,home ,[id number] tablet Take 1 tablet by mouth daily [...] urine Visual changed (floaters) PLAN: present to [facility] for r/o pre-E and delivery planning [...] [x] Specialized anatomy around 20 weeks (Order [id number]) 11/10/22, r/p in 2 weeks= normal [] [...] LMP Reports having 8 week US at [facility] in [place], but does not have records [x] Labs: [...] injection, implant, IUD. 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 [x] Car seat discussed [] PP depression counseling Last visit: [] Last clinic visit SVE: [] IOL start agent: [] Epidural: [] Consents signed: Sprain of right knee 02/22/2021 Encounter for medical examination to establish c are 12/26/2020 Assessment & Plan (12/26/2020 2:03 PM FURNITURE SALES ASSOCIATE): A yearly well visit (also to establish [...] Tobacco: Never Tobacco Cessation:Counseling Given: Not Answered [facility] Utilities Answer Date Recorded In the past 12 months has e [employer], gas, oil, or water [employer] threatened to shut off services in your [...] often do you attend chur ch or yazdanism services? Never 03/09/2023 Do you belong to any clubs o r organizations such as lutheran groups, unions, fraternal or athletic groups, or [...] staff should administer the PHQ-9) 1 01/08/2021 [facility] - [facility] Stress [...] place to sleep or slept in a assisted (including now)? 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 Not on file Not on file Not on file Last Filed Vital Signs Vital Sign Reading Time Taken Comments Blood Pressure 126/87 03/10/2023 9:09 AM FURNITURE SALES ASSOCIATE Pulse 64 03/10/2023 9:09 AM FURNITURE SALES ASSOCIATE Temperature 36.5 C (97.7 F) 03/10/2023 9:09 AM FURNITURE SALES ASSOCIATE Respiratory Rate 18 03/10/2023 9:09 AM FURNITURE SALES ASSOCIATE Oxygen Saturation 100% 03/10/2023 9:09 AM FURNITURE SALES ASSOCIATE Inhaled Oxygen Concentration - - Weight 97.2 kg (214 lb 3.2 oz) 03/07/2023 12:15 PM FURNITURE SALES ASSOCIATE Height 162.6 cm (5' 4) 03/07/2023 12:15 PM FURNITURE SALES ASSOCIATE Body Mass Index 36.77 03/07/2023 12:15 PM FURNITURE SALES ASSOCIATE Plan of Treatment Not on file Procedures Procedure Name Priority Date/Time Associated Diagnosis Comments N. GONORRHOEAE/C. TRACHOMATIS AMPLIFICATION Routine 02/23/2023 4:31 PM FURNITURE SALES ASSOCIATE Encounter for supervision of normal , antepartum, unspecified HEPATITIS C ANTIBODY Routine 10/05/2022 11:58 AM CDT Encounter for supervision of normal first in second trimester from Last 3 Months or Most Recently Relevant to Health Maintenance Results * N. gonorrhoeae/C. trachomatis Amplification Vaginal (02/23/2023 4:31 PM FURNITURE SALES ASSOCIATE) C. trachomatis Not Detected [facility] N. gonorrhoeae Not Detected [facility] Comment: Interpretive Data This assay detects Chlamydia trachomatis and Neisseria gonorrhoeae by nucleic acid amplification testing (NAAT). This assay has been cleared by the [place] Food and Drug administration. The performance characteristics of this test have been verified by the [facility] Molecular Infectious Disease laboratory. The performance characteristics of this test have not been evaluated in individuals less than 14 years of age. Current Interpretive Data was last revised on 2022. Vaginal (None) 02/23/2023 4: 31 PM FURNITURE SALES ASSOCIATE 02/23/2023 5:49 PM FURNITURE SALES ASSOCIATE Rosie Manzo NP LAB MICROBIOLOGY - GENERAL ORDERABLES Final Result [facility] Department [place] [address] * Hepatitis C antibody (10/05/2022 11:58 AM CDT) Hep C Ab Nonreactive Nonreactive [facility] Comment:Antibodies to HCV no t detected. Does NOT exclude the possibility of recent exposure to HCV. Current interpretive data was last revised on 21 Blood 10/05/2022 11:5 8 AM CDT 10/05/2022 12:29 PM CDT Rosie Manzo NP LAB MICROBIOLOGY - GENERAL ORDERABLES Final Result Performing Organization Address [facility] Co de Phone Number [facility] Brianna [facility] Department [place] [address] from Last 3 Months or Most Recently Relevant to Health Maintenance Insurance [facility] Advance Directives For more information, please contact: [phone] * Full Code (Latest Code Status on File) Date Activated Date Inactivated Comments 03/08/2023 10:14 AM 03/10/2023 8:01 PM * Full Code Date Activated Date Inactivated Comments 03/07/2023 9:04 AM 03/08/2023 10:14 AM Full CPR in case of cardiopulmonary arrest Care Teams Electronic Equipment Repairer Relationship Specialty Start Date End Date Uriel Dinero MD PCP - General Family Medicine 12/05/20
--- OUTSIDE RECORDS SUMMARY | 2024-08-17 01:20 | XMS_ITS | Clinical Summary ---
Author Organization [facility] Address [address] [place] [address] Care Team Providers Care Molder Floor Name Role Phone Zhang Oneal MD Primary Care Provider [phone] Source Comments [facility],non-owned Affiliates and Associated Physician Practices is amultiple site organization consisting of ambulatory clinics and hospital sitesin [place], [place], [place] and [place]. This disclosure is being madepursuant to the Care Everywhere program and may not contain all information available regarding this patient. 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
--- NOTE | 2024-08-17 02:13 | ED.ABDPAIN ---
HPI - Abdominal Pain General Chief Complaint: Abdominal Pain Stated Complaint: UPPER ABD PAIN Time Seen by Provider: 08/17/24 01:08 History of Present Illness HPI narrative: Patient is a 23-year-old female who presents the emergency department this evening complaining of epigastric pain across her mid epigastric region. States that she still has her gallbladder. Denies any nausea vomiting or diarrhea. States the pain does come and go but at its worst it is a 8/10. States that the pain is not associated with food. Patient states that pain started approximately 1 week ago and resolved but returned again today since 3:00 p.m.. Denies any additional symptoms or concerns at this time. Related Data Home Medications ?Medication ?Instructions ?Recorded ?Confirmed ?Last Taken ?Type escitalopram oxalate 5 mg tablet mg 01/01/21 Unknown History hydroxyzine HCl 25 mg tablet 01/01/21 Unknown History Allergies Allergy/AdvReac Type Severity Reaction Status Date / Time No Known Allergies Allergy Verified 01/01/21 17:53 Review of Systems Review of Systems: All systems are reviewed and are negative unless stated otherwise in the HPI. [facility] Past Medical History Medical History History of anxiety Social History Social History Substance use: never Exam Narrative: General: Alert, awake, afebrile, in no acute distress. HEENT: PERRL, no rhinorrhea, no post nasal drip, oropharynx clear. Neck: Trachea midline, no JVD, no lymphadenopathy. Cardiovascular: Regular rate and rhythm, no murmurs, rubs or gallops, no peripheral edema. Respiratory: Clear to auscultation bilaterally, no tachypnea, no wheezing, no rhonchi, no rubs, no respiratory distress. Abdomen: Soft, nontender, nondistended, no rebound, no guarding, no peritoneal signs. Musculoskeletal: No joint swelling or deformity, normal muscle tone. Skin: No rashes or petechia, no signs of infection. Psychiatric: Alert and oriented, normal behavior and judgment for situation. Neurological: Alert and oriented to person, place, and time. Follows all commands. No focal deficits, speech is clear and fluent. Course Vital Signs Vital signs: Vital Signs Temperature 97.2 F L 07/10/25 22:56 Pulse Rate 87 08/16/24 22:56 Respiratory Rate 18 08/16/24 22:56 Blood Pressure 131/90 08/16/24 22:56 Pulse Oximetry 98 08/16/24 22:56 Oxygen Delivery Room Air 08/16/24 22:56 Temperature 97.2 F L 08/16/24 22:56 Pulse Rate 87 08/16/24 22:56 Respiratory Rate 18 08/16/24 22:56 Blood Pressure 131/90 08/16/24 22:56 Pulse Oximetry 98 08/16/24 22:56 Oxygen Delivery Room Air 08/16/24 22:56 MDM - Abdominal Pain MDM Narrative Medical decision making narrative: The patient was evaluated by myself in the emergency department. History is obtained from patient who is an independent historian and physical exam was performed. External medical records were reviewed at this time. IV was established and pertinent tests were ordered. Laboratory results obtained revealing no acute process. Urinalysis unremarkable. Imaging studies obtained included CT abdomen pelvis with IV contrast which was independently interpreted by me revealing mild enteritis otherwise no acute process, which is pending final radiology interpretation. Differential diagnosis considerations include cholecystitis, biliary colic, pancreatitis, peptic ulcer disease/gastritis. Comorbidities impacting this visit include none. I have evaluated and discussed social determinants of health with the patient that could potentially impact subsequent diagnosis and treatment plans. On repeat assessment of the patient, reevaluation revealed that the patient is doing well and is in no acute distress. Patient symptoms have improved since she arrived to our emergency department. Repeat vital signs were all reviewed and noted to be stable. Differential diagnosis and treatment plan were discussed with the patient at bedside. Patient agrees with discussion and after shared medical decision making agrees with discharge. All questions were answered to the patient's satisfaction. Patient will follow up with her PCP in 3-5 days. Patient was provided with strict return precautions and instructed to return to the emergency department if any new or worsening symptoms develop. The patient was discharged in stable condition. Lab Data 08/17/24 00:44 08/17/24 00:44 Labs: Lab Results 08/17/24 08/17/24 Range/Units 00:44 00:46 WBC 11.4 H (4.5-10.0) K/mm3 RBC 4.95 (4.2-5.4) M/mm3 Hgb 14.0 (12.0-15.0) g/dL Hct 42.5 (37.0-47.0) % MCV 85.9 (80-100) fl MCH 28.3 (26-34) pg MCHC 32.9 (32-36) g/dl RDW 13.5 (11.5-14.5) % Plt Count 292 (150-375) k/mm3 MPV 9.2 (7.4-10.4) fl Immature Gran % (Auto) 0.4 (0-0.5) % Neut % (Auto) 61.0 (45.5-73.1) % Lymph % (Auto) 32.6 (18.3-44.2) % Mcdonough % (Auto) 4.4 (2.6-8.5) % Eos % (Auto) 1.2 (0-4.4) % Baso % (Auto) 0.4 (0.2-1.2) % Lymph # (Auto) 3.70 H (0.9-3.2) K/mm3 Mcdonough # (Auto) 0.5 (0.1-0.6) K/mm3 Eos # (Auto) 0.1 (0-0.3) K/mm3 Baso # (Auto) 0.1 (0.0-0.1) K/mm3 Abs Immat Gran (auto) 0.05 H (0.00-0.031) K/mm3 Absolute Neuts (auto) 6.9 H (1.3-6.7) K/mm3 Absolute Nucleated RBC 0.000 (0.0-0.012) K/mm3 Nucleated RBC % 0.0 (0.0-0.2) % Sodium 139 (137-145) mmol/L Potassium 4.2 (3.4-5.0) mmol/L Chloride 104 (98-107) mmol/L Carbon Dioxide 26 (22-30) mmol/L Anion Gap 9 (4-12) mmol/L BUN 14 (7-17) mg/dL Creatinine 0.84 (0.7-1.0) mg/dL Estim Creat Clear Calc 101 ml/min Estimated GFR > 60 (59 - ) Glucose 103 (65-110) mg/dL Calcium 9.4 (8.4-10.2) mg/dL Total Bilirubin 0.3 (0.2-1.3) mg/dL AST 28 (14-36) U/L ALT 45 H (6-35) U/L Alkaline Phosphatase 79 (38-126) U/L Total Protein 7.9 (6.3-8.2) g/dL Albumin 4.6 (3.5-5.1) g/dL Lipase 61 (23-300) U/L Urine Color Yellow (Yellow) Urine Appearance Cloudy H (Clear) Urine pH 7.0 (5.0-9.0) Ur Specific [place] 1.024 (1.001-1.035) Urine Protein Negative (Negative) mg/dL Urine Glucose (UA) Negative (Negative) mg/dL Urine Ketones Negative (Negative) mg/dL Ur Blood (Man) Negative (Negative) Urine Nitrate Negative (Negative) Urine Bilirubin Negative (Negative) Urine Urobilinogen 0.2 (<2.0) mg/dL Add Ur Microanalysis Reviewed Leukocyte Esterase Rfl 1+ H (Negative) HAZEL/UL Urine RBC 0-2 (0-2) /hpf Urine WBC 0-5 (0-3) /hpf Ur Squamous Epith Cells Moderate (Few) /hpf Urine Bacteria 2+ H /hpf Urine Casts 0-2 POC Urine HCG, Qual Negative (Negative) Discharge Plan Discharge Clinical Impression: Abdominal pain, epigastric, Enteritis Patient Disposition: Home Condition: Improved Instructions: Antibiotic Form, Abdominal Pain (ED), Enteritis (ED) Additional Instructions: Please follow-up with the family doctor within the next 3-5 days. Return to emergency department if any new or worsening symptoms develop. Patient Language: Kazakh Prescriptions: No Action hydroxyzine HCl 25 mg tablet escitalopram oxalate 5 mg tablet cephalexin 500 mg capsule 500 mg PO Q6H 7 Days Qty: 28 0RF Follow-up/Referrals: Rosette,Uriel Parnell MD [Primary Care Provider] - 3 Days Time of Disposition: 02:52
== END 2024-08-17 03:00 | disposition home or self-care (01) ==
PROVIDERS: Physician Assistant; Emergency Provider Emergency Medicine; PCP Family Medicine
DX: K52.9 Noninfective gastroenteritis and colitis, unspecified (principal); F41.9 Anxiety disorder, unspecified; Z79.899 Other long term (current) drug therapy
CPT/HCPCS: 36415; 74177; 80053; 81001; 81025; 83690; 85025; 99284; Q9967